=== PATIENT | male | born 1995 | race Caucasian/White ===

== ENCOUNTER 2020-05-31 18:27 | Emergency (ER) | payer MEDICAID ==
[~2020-05-31] VITALS: Ht 170.2 cm; Wt 95.3 kg
[2020-05-31 18:30] VITALS: BP_SYST 138
--- NOTE | 2020-05-31 18:30 | NUR ---
BROUGHT IN BY SARITHA VILLANUEVA AND HERE FOR OK TO BOOK. TRIAGED WHILE IN POLICE CAR. AWAITING ER BED.
--- NOTE | 2020-05-31 18:50 | NUR ---
DR MORALEZ OUT TO POLICE CAR FOR EVALUATION
--- NOTE | 2020-05-31 19:00 | NUR ---
Patient given written and verbal discharge instructions and verbalizes understanding. ER MD discussed with patient the results and treatment provided. Patient in stable condition. ID arm band removed. Rx of NONE given. Patient educated on pain management and to follow up with PMD. Pain Scale 0/10. Opportunity for questions provided and answered. Medication side effect fact sheet provided.
== END 2020-05-31 19:00 ==
LOC: SED 18:27
DX: R05 Cough (principal)
CPT/HCPCS: 99283